=== PATIENT | female | born 2000 | race Caucasian/White ===

== ENCOUNTER 2022-08-06 17:07 | Emergency (ER) | payer OTHER ==
[~2022-08-06] VITALS: Ht 160 cm; Wt 82.1 kg
[2022-08-06 17:18] VITALS: BP 136/90
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
--- NOTE | 2022-08-06 18:32 | NUR ---
pt provided with dinner. pt eating in bed
[2022-08-06 18:34] LABS: BASOPHILS # (AUTO) 0.1 K/uL (0.00-0.22); BASOPHILS % (AUTO) 0.8 % (0.0-2.0); EOSINOPHILS # (AUTO) 0.1 K/uL (0-0.4); EOSINOPHILS % (AUTO) 1.7 % (0.0-4.0); HEMATOCRIT 41.1 % (36-48); HEMOGLOBIN 13.9 g/dL (12.0-16.0); LYMPHOCYTES % (AUTO) 28.2 % (20.5-51.1); MEAN CORPUSCULAR HEMOGLOBIN 31 pg (27-31); MEAN CORPUSCULAR HGB CONC 34 g/dL (33-37); MEAN CORPUSCULAR VOLUME 90.4 fL (80-94); MONOCYTES # (AUTO) 0.5 K/uL (0.8-1.0); MONOCYTES % (AUTO) 7.6 % (1.7-9.3); NEUTROPHILS # (AUTO) 4.3 K/uL (1.8-7.7); NEUTROPHILS % (AUTO) 61.7 % (42.2-75.2); PLATELET COUNT (AUTO) 291 K/uL (140-450); RED BLOOD CELL COUNT(AUTO) 4.54 MIL/uL (4.20-5.40); RED CELL DISTRIBUTION WIDTH 13.5 % (11.6-13.7); WHITE BLOOD COUNT (AUTO) 6.9 K/uL (4.5-11.0)
--- NOTE | 2022-08-06 18:40 | NUR ---
pt swabbed for covid(michael) and flu. handed to cath lab manager
[2022-08-06 18:46] LABS: ACETAMINOPHEN < 0.5 ug/ml (10-30); ALBUMIN 3.9 g/dL (3.4-5.0); ANION GAP 14.3 (8-16); CARBON DIOXIDE 23.5 mmol/L (21-32); CHLORIDE 104 mmol/L (98-107); CREATININE 0.6 mg/dL (0.6-1.3); GFR ARICAN-AMERICAN 164 mL/min (>90); GLUCOSE 94 mg/dL (74-106); POTASSIUM 3.8 mmol/L (3.5-5.1); SALICYLATE < 2.8 mg/dL (2.8-20.0); SODIUM SERUM 138 mmol/L (136-145); TOTAL BILIRUBIN 0.3 mg/dL (0.0-1.0); UREA NITROGEN, BLOOD 8 mg/dL (7-18)
--- NOTE | 2022-08-06 19:22 | NUR ---
REPORT GIVEN TO MICKIE LOMELI. ALL QUESTIONS ANSWERED . TRANSFER OF CARE AT THIS TIME
--- NOTE | 2022-08-06 19:30 | NUR ---
TELEPSYCH INITIATED PER DR. PANTOJA. SET UP AT BEDSIDE. AWAITING CONTACT WITH DR. CASTILLO
--- NOTE | 2022-08-06 19:33 | NUR ---
Dr. Leigh examining patient.
--- NOTE | 2022-08-06 19:38 | NUR ---
DR. CASTILLO SPEAKING WITH PATIENT
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
--- NOTE | 2022-08-06 20:13 | NUR ---
[place] [facility] AT BEDSIDE. DID NOT PLACE PT ON A HOLD PER THEIR CRITERIA
[2022-08-06 20:21] LABS: APPEARANCE,URINE CLEAR (CLEAR); BILIRUBIN,URINE NEGATIVE (NEGATIVE); BLOOD, URINE NEGATIVE (NEGATIVE); COLOR,URINE YELLOW (YELLOW); LEUKOCYTE ESTERASE ,URINE NEGATIVE (NEGATIVE); NITRITE, URINE NEGATIVE (NEGATIVE); PH,URINE 7.5 (5.0-9.0); UGLUCOSE NEGATIVE (NEGATIVE)
[2022-08-06 20:34] LABS: BARBITURATE, URINE NEGATIVE ng/ml (NEG <=200); BENZODIAZEPINE, URINE NEGATIVE ng/mL (NEG <=200); CANNABINOID, URINE NEGATIVE ng/mL (NEG <=50); COCAINE, URINE NEGATIVE ng/mL (NEG <=300); OPIATE, URINE NEGATIVE ng/mL (NEG <=2000); PHENCYCLIDINE SCREEN,URINE NEGATIVE ng/mL (NEG <=25)
--- NOTE | 2022-08-06 21:55 | NUR ---
MOTHER AT BEDSIDE
[2022-08-06 21:56] VITALS: BP 130/90
--- NOTE | 2022-08-06 21:56 | NUR ---
Chart checked and completed.
--- NOTE | 2022-08-06 21:56 | NUR ---
Patient discharged with v/s stable. Written and verbal after care instructions given and explained. Patient verbalized understanding. Ambulatory with by parent. All questions addressed prior to discharge. Advised to follow up with PMD.
[2022-08-07 00:50] LABS: ASPARTATE AMINOTRANSFERASE 18 U/L (15-37)
== END 2022-08-06 21:56 | disposition home or self-care (01) ==
LOC: MED 17:07
DX: R45.851 Suicidal ideations (principal); Z20.822 Contact with and (suspected) exposure to COVID-19
CPT/HCPCS: 36415; 80053; 80305; 81003; 81025; 85025; 87426; 99285; G0480; G0482; U0003